=== PATIENT | female | born 1960 | race Caucasian/White ===

== ENCOUNTER 2016-05-22 07:37 | Emergency (ER) | payer OTHER ==
[2016-05-22] MEDS ORDERED: ACETAMINOPHEN 325 MG TAB PO ONE (07:52)
--- NOTE | 2016-05-22 08:04 | EDPHY ---
H & P Stated Complaint: URI/flu sxs since sunday;coughing up yellow mucous; :my lungs are on fire" HPI/ROS: CHIEF COMPLAINT: Burning chest, Cold-symptoms HISTORY OF PRESENT ILLNESS: The patient is a 55 year old female, with history of bladder cancer, who presents to the ED with a burning sensation in her chest that started last night. The patient developed cold-like symptoms including cough, congestion, low grade fever, and nausea for the past 3 days. Last night her symptoms worsened, she developed a burning sensation in her chest that radiates to her back. Yellow sputum production, scant. She has associated shortness of breath. The patient received influenza vaccination this season. Low grade fever, no sputum. No chest pain, some worsening in the burning with deep inspiration. No vomiting or diarrhea. No urinary complaints although patient is concerned that anytime she is sick, she develops UTI's. REVIEW OF SYSTEMS: Aside from elements discussed in the HPI, a comprehensive 10-point review of systems was reviewed and is negative. PAST MEDICAL HISTORY: Bladder cancer, neobladder present. No longer undergoing active treatment. SOCIAL HISTORY: . VITAL SIGNS: Reviewed by me GENERAL: Tired appearing. HEENT: Atraumatic. Eyes: No icterus, no injection. Mouth: slightly dry mucous membranes. No erythema or lesions. Neck: supple with no adenopathy. LUNGS: Diminished breath sounds throughout, wheezing cough. CARDIAC: Regular rate and rhythm, no rubs, murmurs or gallops. ABDOMEN: Soft, nontender, nondistended, bowel sounds normal. Neobladder in right lower abdominal wall. BACK: No CVA tenderness. EXTREMITIES: No trauma. No edema. Range of motion is normal throughout. NEURO: Alert and oriented, grossly nonfocal. SKIN: Warm and dry, no rash. PSYCHIATRIC: Normal mentation, no agitation. Portions of this note were transcribed by a medical and health services manager. I personally performed a history, physical exam, medical decision making, and confirmed accuracy of information the transcribed note. - Personal History Current Tetanus Diphtheria and Acellular Pertussis (TDAP): Yes - Medical/Surgical History Other PMH: punctured lung 10 yrs ago. Bladder cancer. Low BP (normal for pt) - Social History Smoking Status: Never smoked Constitutional: Initial Vital Signs Temperature (C) 37.3 C 05/22/16 07:38 Heart Rate 81 05/22/16 07:38 Respiratory Rate 20 05/22/16 07:38 Blood Pressure 98/65 L 05/22/16 07:38 O2 Sat (%) 96 05/22/16 07:38 O2 Delivery Mode Room Air Allergies/Adverse Reactions: Penicillins Allergy (Unknown, Verified 05/22/16 07:42) Home Medications: Medication Instructions Recorded Oseltamivir Phosphate [Tamiflu 75 75 mg PO BID #10 cap 05/22/16 mg (*)] Medical Decision Making - Diagnostics EKG Interpretation: The 12 lead EKG was interpreted by myself. See hard copy and/or "tracemaster" electronic copy for interpretation: Sinus rhythm. Imaging: X-ray: chest was obtained. I viewed the images myself on the PACS system. My interpretation of the images is: Nothing acute. The radiologist interpretation is: Nothing definitely acute identified. If there is concern that any of the vertebral compressions might be acute or have an acute component , then consider MRI to evaluate for bone marrow edema. I discussed the x-ray findings with the patient. ED Course/Re-evaluation: The patient received 650mg Tylenol PO. She was started on an Albuterol inhaler for decreased breath sounds as well as solumendrol 125mg IV. Chest x-ray is pending. 1055: Influenza B is positive. I discussed findings with the patient. She is receiving IV fluids. Discussed admission for supportive care vs home with tamiflu. Received ibuprofen for generalized aches. 12:15 pm: I reevaluated the patient. She is feeling better after fluids and Ibuprofen. The patient would like to be discharged home. Discussed reasons to return, discussed limitations of tamiflu. Encouraged fluids, rest, antipyretics and pain relievers. Follow up as needed. Differential Diagnosis: Differential diagnosis for the patient's presenting complaints was considered including but not limited to viral versus bacterial bronchitis, influenza, asthma, COPD, pulmonary emboli, upper respiratory infection, lower respiratory infection, and bronchospasm. - Data Points Laboratory Results: Laboratory Results 05/22/16 09:35 05/22/16 09:35 Microbiology Results: MICROBIOLOGY 05/22/16 10:25 Blood Blood Culture - Preliminary 05/22/16 09:35 Blood Blood Culture - Preliminary Medications Given: Discontinued Medications Acetaminophen (Tylenol) 650 mg PO EDNOW ONE Stop: 05/22/16 07:53 Last Admin: 05/22/16 08:08 Dose: 650 mg Albuterol (Proventil Neb) 3 ml IH EDNOW ONE Stop: 05/22/16 09:13 Last Admin: 05/22/16 09:46 Dose: 3 ml Benzonatate (Tessalon Pearles) 100 mg PO EDNOW ONE Stop: 05/22/16 11:12 Last Admin: 05/22/16 11:21 Dose: 100 mg Sodium Chloride (Ns) 1,000 mls @ 0 mls/hr IV ONCE ONE PRN Reason: Wide Open Stop: 05/22/16 10:55 Last Admin: 05/22/16 11:10 Dose: 1,000 mls Ibuprofen (Motrin) 600 mg PO EDNOW ONE Stop: 05/22/16 10:55 Last Admin: 05/22/16 11:09 Dose: 600 mg Methylprednisolone Sodium Succinate (Solu-Medrol) 125 mg IVP EDNOW ONE Stop: 05/22/16 09:13 Last Admin: 05/22/16 09:46 Dose: 125 mg Oseltamivir Phosphate (Tamiflu) 75 mg PO EDNOW ONE Stop: 05/22/16 12:18 Last Admin: 05/22/16 12:18 Dose: 75 mg Departure - Departure Disposition: Home, Routine, Self-Care Clinical Impression: Influenza B, Acute bronchospasm due to viral infection, Chest discomfort, Volume depletion Condition: Good Instructions: Oseltamivir (By mouth), Influenza (ED) Additional Instructions: 1. Drink plenty of fluids and get plenty of rest. 2. Start Tamiflu and continue as directed. 3. Take 600mg Ibuprofen every 6-8 hours as needed for pain. Referrals: ARNOLDO KELLY [Non Staff Provider (MD)] - As per Instructions Prescriptions: Oseltamivir Phosphate [Tamiflu 75 mg (*)] 75 mg PO BID #10 cap Report Scribed for: Shobha Osorio Report Scribed by: Chely Dykes Date of Report: 05/22/16 Time of Report: 08:46
--- NOTE | 2016-05-22 08:08 | CPEKG ---
Heart Rate: 77 RR Interval: 779 P-R Interval: 164 QRSD Interval: 78 QT Interval: 360 QTC Interval: 408 P [place]: 82 QRS [place]: 74 T Wave [place]: 72 EKG Severity - NORMAL ECG - EKG Impression: SINUS RHYTHM Electronically Signed By: Shobha Osorio 22-May-2016 16:30:54
[2016-05-22 08:14] VITALS: TEMP 98.8
[2016-05-22] MEDS ORDERED: ALBUTEROL 3 ML DEYVIAL IH ONE (09:12)
[2016-05-22] MEDS ORDERED: methylPREDNISolone SOD SUCC 125 MG/2 ML VIAL IVP ONE (09:12)
[2016-05-22 09:55] LABS: % IMMATURE GRANULYOCYTES 0.2 % (0.0-1.1); ABSOLUTE IMMATURE GRANULOCYTES 0.01 10^3/uL (0.00-0.10); ADD DIFF? NO; ADD MORPH? NO; ADD SCAN? NO; ATYPICAL LYMPHOCYTE FLAG 0 (0-99); FRAGMENT RBC FLAG 0 (0-99); HEMATOCRIT 39.6 % (38.0-47.0); HEMOGLOBIN 13.4 g/dL (12.6-16.3); LEFT SHIFT FLG 10 (0-99); LIPEMIA HEMOLYSIS FLAG 90 (0-99); MEAN CELL HEMOGLOBIN 31.6 pg (27.9-34.1); MEAN CELL HEMOGLOBIN CONCENTR. 33.8 g/dL (32.4-36.7); MEAN CELL VOLUME 93.4 fL (81.5-99.8); MEAN PLATELET VOLUME 11.4 fL (8.7-11.7); PLATELET CLUMPS FLAG 10 (0-99); PLATELET COUNT 159 10^3/uL (150-400); RED BLOOD CELL COUNT 4.24 10^6/uL (4.18-5.33); RED CELL DISTRIBUTION WIDTH 11.9 % (11.5-15.2)
[2016-05-22 10:08] LABS: PROTIME(PATIENT) 13.1 SEC (12.0-15.0)
[2016-05-22 10:09] LABS: APTT 27.1 SEC (23.0-38.0)
[2016-05-22 10:11] LABS: ANION GAP 9 mEq/L (8-16); BILIRUBIN,TOTAL 0.5 mg/dL (0.1-1.4); CALCIUM 8.8 mg/dL (8.5-10.4); CARBON DIOXIDE 22 mEq/l (22-31); CHLORIDE 109 mEq/L (97-110); CREATININE 0.7 mg/dL (0.6-1.0); GLOMERULAR FILTRATION RATE > 60; GLUCOSE 102 mg/dL (70-100); POTASSIUM 3.8 mEq/L (3.5-5.2); SODIUM 140 mEq/L (134-144)
[2016-05-22] MEDS ORDERED: IBUPROFEN 600 MG TAB PO ONE (10:54)
[2016-05-22] MEDS ORDERED: NS 1,000 ML IV ONE (10:54)
[2016-05-22 11:04] LABS: COLOR YELLOW; LEUKOCYTE ESTERASE,URINE NEGATIVE (NEGATIVE); NITRITE,URINE NEGATIVE (NEGATIVE)
[2016-05-22] MEDS ORDERED: BENZONATATE 100 MG CAP PO ONE (11:11)
[2016-05-22 11:20] LABS: BACTERIA TRACE /hpf (NONE SEEN); MUCUS TRACE /lpf (NONE-1+); WBC,URINE 50-182 /hpf (0-3)
[2016-05-22] MEDS ORDERED: OSELTAMIVIR PHOSPHATE 75 MG CAP PO ONE (12:17)
[2016-05-22 13:01] VITALS: BP 98/56; PULSE 84; RESP 18; O2SAT 93
== END 2016-05-22 12:55 | disposition home or self-care (01) ==
DX: J10.1 Influenza due to other identified influenza virus with other respiratory manifestations (principal); R07.89 Other chest pain; E86.9 Volume depletion, unspecified; Z85.51 Personal history of malignant neoplasm of bladder
CPT/HCPCS: 96374